=== PATIENT | male | born 1940 | race Caucasian/White ===

== ENCOUNTER 2017-05-11 04:02 | Outpatient (CLI) | payer MEDICARE, SELFPAY | END 2017-05-11 23:59 | disposition home or self-care (01) | LOC: DIABETIC 04:02 | PROVIDERS: ATTEND Internal Medicine | DX: E11.9 Type 2 diabetes mellitus without complications (principal) | CPT/HCPCS: G0108 ==

== ENCOUNTER 2019-03-21 02:29 | Outpatient (CLI) | payer MEDICARE | END 2019-03-21 23:59 | disposition home or self-care (01) | LOC: DIABETIC 02:29 | PROVIDERS: ATTEND Family Medicine | DX: E11.9 Type 2 diabetes mellitus without complications (principal); Z79.4 Long term (current) use of insulin | CPT/HCPCS: G0108 ==

== ENCOUNTER 2019-09-04 16:21 | Inpatient (IN) | payer MEDICARE ==
[~2019-09-04] VITALS: Ht 177.8 cm; Wt 96.0 kg
[2019-09-04] MEDS ORDERED: normal saline 1000ML IV soln IVB ONE (16:40)
[2019-09-04 17:29] LABS: BASOPHILS # (AUTO) 0.1 X10'3 (0-0.2); BASOPHILS % (AUTO) 0.9 % (0-1); EOSINOPHILS # (AUTO) 0.2 X10'3 (0-0.9); EOSINOPHILS % (AUTO) 3.1 % (0-6); HEMATOCRIT 39.9 % (42.0-52.0); HEMOGLOBIN 13.1 g/dl (14.0-17.9); LYMPHOCYTES # (AUTO) 1.3 X10'3 (1.1-4.8); MEAN CORPUSCULAR HEMOGLOBIN 30.6 PG (27.0-31.0); MEAN PLATELET VOLUME 7.1 FL (7.4-10.4); MONOCYTES # (AUTO) 0.7 X10'3 (0-0.9); MONOCYTES % (AUTO) 9.1 % (2-12); NEUTROPHILS # (AUTO) 5.1 X10'3 (1.8-7.7); NEUTROPHILS % (AUTO) 68.9 % (42-75); PLATELET COUNT 231 X10'3 (140-440); RED BLOOD COUNT 4.29 X10'6 (4.70-6.10); RED CELL DISTRIBUTION WIDTH 14.6 % (11.5-14.5); WHITE BLOOD COUNT 7.4 X10'3 (4.5-11.0)
[2019-09-04 17:55] LABS: ALANINE AMINOTRANSFERASE 35 U/L (12-78); ALBUMIN 3.6 G/DL (3.4-5.0); ALBUMIN/GLOBULIN RATIO 1.1 (1.1-1.5); ALKALINE PHOSPHATASE 103 IU/L (46-116); ANION GAP 10 (8-16); ASPARTATE AMINO TRANSFERASE 28 U/L (10-37); BILIRUBIN,TOTAL 0.4 MG/DL (0.1-1.0); BLOOD UREA NITROGEN 31 MG/DL (7-18); BUN/CREATININE RATIO 25.8 (5.4-32.0); CALCIUM 8.8 MG/DL (8.5-10.1); CHLORIDE 102 MMOL/L (99-107); GLUCOSE 95 MG/DL (70-104); POTASSIUM 4.7 MMOL/L (3.5-5.1); SODIUM 136 MMOL/L (135-145); TOTAL CARBON DIOXIDE 24.1 MMOL/L (24-32); TOTAL PROTEIN 6.9 G/DL (6.4-8.2); eGFR 59 ML/MIN
[2019-09-04 18:00] LABS: MAGNESIUM 1.6 MG/DL (1.5-2.4)
[2019-09-04 18:18] LABS: CLARITY,URINE CLEAR (Clear); COLOR,URINE YELLOW (Yellow); GLUCOSE, URINE NEGATIVE (Neg); KETONES,URINE NEGATIVE (Neg); LEUKOCYTE ESTERASE ,URINE TRACE (Neg); NITRITES, URINE NEGATIVE (Neg); OCCULT BLOOD,URINE NEGATIVE (Neg); PH,URINE 7.5 (4.8-8.0); PROTEIN,URINE NEGATIVE (Neg); UROBILINOGEN,URINE 0.2 E.U/dL (0.2-1.0)
[2019-09-04] MEDS ORDERED: CHOL10006 PO (18:31)
[2019-09-04] MEDS ORDERED: CETI-90 PO (18:31)
[2019-09-04] MEDS ORDERED: PANT-47 PO (18:31)
[2019-09-04] MEDS ORDERED: METF500T PO (18:31)
[2019-09-04] MEDS ORDERED: ATOR40TA72 PO (18:31)
[2019-09-04] MEDS ORDERED: NPH,100V2 SQ (18:31)
[2019-09-04] MEDS ORDERED: BENA20TA10 PO (18:31)
[2019-09-04 18:37] LABS: BACTERIA,URINE NONE SEEN /HPF (Neg); RBC,URINE NONE SEEN /HPF (0-2); SQUAMOUS EPITHELIAL CELL,UR NONE SEEN /LPF (FEW); UA COLLECTION TYPE CLN CATCH MIDSTREAM; WBC,URINE 0-4 /HPF (0-4)
[2019-09-04] MEDS ORDERED: magnesium 2GM in 50ml NS 50 ML IV PRN (19:45)
[2019-09-04] MEDS ORDERED: acetaminophen 325mg tablet PO PRN (19:45)
[2019-09-04] MEDS ORDERED: mag hydrox/Alum hydrox/simeth 30ml oral suspension PO PRN (19:45)
[2019-09-04] MEDS ORDERED: potassium Cl 20 mEq SR tablet PO PRN ×2 (19:45)
[2019-09-04] MEDS ORDERED: ondansetron/PF 4mg/2ml inj IV PRN (19:45)
[2019-09-04] MEDS ORDERED: potassium CL 10mEq/100ml bag 100 ML IV PRN ×2 (19:45)
[2019-09-04] MEDS ORDERED: magnesium 4gm in 100ml NS 100 ML IV PRN (19:45)
[2019-09-04] MEDS ORDERED: magnesium Cl slow-release 64mg tablet PO PRN (19:45)
[2019-09-04] MEDS ORDERED: magnesium hydroxide 30ml (MOM) UD suspension PO PRN (19:45)
[2019-09-04] MEDS: docusate sod 100mg capsule PO SCH (20:00)
[2019-09-04] MEDS: K and/or MAG REPLACEMENT MC SCH (20:00)
--- NOTE | 2019-09-04 20:28 | NUR ---
attempted to reach floor nurse. No one available at this time.
[2019-09-04] MEDS ORDERED: insulin Lispro (HumaLOG) vial - multi-dose SQ SCH (20:35)
[2019-09-04] MEDS ORDERED: MESSAGE TO PHARMACY PO ONE (20:35)
[2019-09-04] MEDS ORDERED: dextrose ORAL solution 15 GM/59 ML bottle PO PRN ×2 (20:35)
[2019-09-04] MEDS ORDERED: dextrose 50%-water 50ml dispensing syringe IV PRN ×2 (20:35)
[2019-09-04] MEDS ORDERED: glucagon, human recombinant 1mg kit SUBCUT PRN (20:35)
--- NOTE | 2019-09-04 20:35 | NUR ---
Attempted to reach PCU. No answer at this time.
[2019-09-04 20:57] LABS: HEMOGLOBIN A1C 8.2 % (4.5-6.2)
[2019-09-04] MEDS ORDERED: insulin glargine (Lantus) pen - multi-dose SQ SCH (21:00)
--- NOTE | 2019-09-04 21:05 | NUR ---
received report from [facility], had opportunity to ask questions. VS stable, pt on RA,pt has DM2, plan is- possible ppm tomorrow.
[2019-09-04 21:20] VITALS: BP 136/80
[2019-09-05 02:30] VITALS: BP 150/71
[2019-09-05 06:06] LABS: BASOPHILS # (AUTO) 0.1 X10'3 (0-0.2); BASOPHILS % (AUTO) 1.1 % (0-1); EOSINOPHILS # (AUTO) 0.3 X10'3 (0-0.9); EOSINOPHILS % (AUTO) 3.7 % (0-6); HEMATOCRIT 42.8 % (42.0-52.0); LYMPHOCYTES # (AUTO) 1.3 X10'3 (1.1-4.8); LYMPHOCYTES % (AUTO) 18.6 % (21-51); MEAN CORPUSCULAR HEMOGLOBIN 30.4 PG (27.0-31.0); MEAN CORPUSCULAR HGB CONC 32.7 g/dL (33.0-36.5); MEAN PLATELET VOLUME 7.3 FL (7.4-10.4); MONOCYTES # (AUTO) 0.7 X10'3 (0-0.9); MONOCYTES % (AUTO) 10.3 % (2-12); NEUTROPHILS # (AUTO) 4.5 X10'3 (1.8-7.7); NEUTROPHILS % (AUTO) 66.3 % (42-75); PLATELET COUNT 245 X10'3 (140-440); RED CELL DISTRIBUTION WIDTH 14.6 % (11.5-14.5); WHITE BLOOD COUNT 6.8 X10'3 (4.5-11.0)
[2019-09-05 06:15] LABS: ALANINE AMINOTRANSFERASE 36 U/L (12-78); ALBUMIN 3.7 G/DL (3.4-5.0); ALBUMIN/GLOBULIN RATIO 1.1 (1.1-1.5); ALKALINE PHOSPHATASE 100 IU/L (46-116); ANION GAP 4 (8-16); ASPARTATE AMINO TRANSFERASE 26 U/L (10-37); BILIRUBIN,TOTAL 0.6 MG/DL (0.1-1.0); BLOOD UREA NITROGEN 24 MG/DL (7-18); BUN/CREATININE RATIO 18.8 (5.4-32.0); CALCIUM 9.4 MG/DL (8.5-10.1); CHLORIDE 102 MMOL/L (99-107); CREATININE 1.28 MG/DL (0.60-1.10); GLUCOSE 199 MG/DL (70-104); POTASSIUM 4.8 MMOL/L (3.5-5.1); SODIUM 137 MMOL/L (135-145); TOTAL CARBON DIOXIDE 30.7 MMOL/L (24-32); TOTAL PROTEIN 7.2 G/DL (6.4-8.2); eGFR 55 ML/MIN
[2019-09-05 06:19] LABS: MAGNESIUM 1.7 MG/DL (1.5-2.4)
--- NOTE | 2019-09-05 06:19 | NUR ---
Problems reprioritized. Patient report given, questions answered & plan of care reviewed with [facility].
--- NOTE | 2019-09-05 06:30 | NUR ---
Patient in room PCU 3026. I have received report from MEGHAN Sultana and had the opportunity to ask questions and assume patient care.
[2019-09-05 07:00] VITALS: BP 139/70
[2019-09-05] MEDS: docusate sod 100mg capsule PO SCH (07:46)
[2019-09-05 07:47] VITALS: BP_SYST 139
[2019-09-05] MEDS ORDERED: lisinopril 20mg tablet PO SCH (08:00)
[2019-09-05] MEDS: K and/or MAG REPLACEMENT MC SCH (08:00)
[2019-09-05] MEDS ORDERED: atorvastatin 20mg tablet PO SCH (08:00)
[2019-09-05] MEDS ORDERED: pantoprazole 40mg Tablet.DR PO SCH (08:00)
--- NOTE | 2019-09-05 11:40 | NUR ---
PAGER ID: [phone] MESSAGE: [id number] Everette Betts EKG in chart. JORGE Marina RN [id number]
[2019-09-05] MEDS ORDERED: CETI-90 PO (11:53)
--- NOTE | 2019-09-05 13:04 | NUR ---
DM consult: Pt with A1c 8.2% seen at bedside denies questions about DM education or written DM education. Pt states he has had diabetes for over twenty years and already knows what he needs to do, just needs to implement it. Pt reports paperwork is in the process for outpatient dental resident scheduling and is wanting to further discuss this, VM left with CM. Pt provided with RD contact information. Will remain available. Addendum: 09/05/19 at [address] Amended: Links added.
--- NOTE | 2019-09-05 13:55 | NUR ---
Patient discharged home and will schedule an appointment with Dr. Chisholm when he gets home. Patient preferred to administer insulin himself when he arrives home. Tele, and PIV removed. Patient verbalized an understanding of his discharge instructions and patient education handouts. Patient's picked him up from [employer].
--- NOTE | 2019-09-11 14:25 | NUR ---
Case Management DC follow up: Status post: dizzy, weak, lightheaded/bradycardia, A1C 8.2. Spoke to pt & pt spouse, Livia via telephone, reports: pt is quick to tire, still gets dizzy, confusion per pt spouse who states she is worried. Pt downplays symptoms. Denies: acute/continuous cp, emergent SOB, acute general pain, resp distress, [place], N/V, sycope episodes, blurry vision, abd pain, distension, bladder pain, dysuria, frequency, urgency, hematuria, unexplained bleeding, bruising,fever. Verbalizes understanding of s/s that would warrant 11-15/ER visit for evaluation. Verbalizes understanding of Rx, why prescribed, resumes current Rx as ordered, denies ase r/t polypharmacy. Acknowledges need to schedule/keep follow up appts w/PCP/Benedicto, was seen by DRAPERY CUTTER MACHINE who recommended pt not to drive. pt feels is fine to drive. Reiterated unpredictable symptoms, driving not safe at this time, at least until [facility], Dr Chisholm has been able to do a thorough assessment. Dr Chisholm contacted on Tuesday09/07/19, awaiting records. Pt told records were sent today 09/11/19, and waiting for call to schedule. pt spouse states wants mold filler switched to Dr Haines for reasons r/t possible cardiac surgery, and Dr Chisholm is with [facility], pt & pt do not want any surgeries done at [facility]. this is the only reason for changing cardiologists. Pt agrees to discuss w/Dr Chisholm at appt. Needs met, questions answered at DC, no further questions r/t post status DC at this time.
== END 2019-09-05 13:41 | disposition home or self-care (01) | DRG 310 ==
LOC: ER 16:21 → ED HOLD 19:45 → PCU 3S 21:10
PROVIDERS: ADMIT Family Medicine; ATTEND Internal Medicine
DX: I44.1 Atrioventricular block, second degree (principal); R00.8 Other abnormalities of heart beat; E11.69 Type 2 diabetes mellitus with other specified complication; E78.5 Hyperlipidemia, unspecified; I45.4 Nonspecific intraventricular block; I10 Essential (primary) hypertension; K21.9 Gastro-esophageal reflux disease without esophagitis; Z79.899 Other long term (current) drug therapy; Z79.4 Long term (current) use of insulin
CPT/HCPCS: 36415; 71045; 80053; 81001; 82948; 83036; 83735; 83880; 84484; 85025; 87081; 87088; 93005; 93306; 96360; 96361; 99285; G0378; J1815; J7030

== ENCOUNTER 2019-09-27 14:14 | Emergency (ER) | payer MEDICARE ==
[~2019-09-27] VITALS: Ht 177.8 cm; Wt 90.9 kg
[~2019-09-27 14:14] MED LIST: ATOR40TA72 PO; BENA20TA10 PO; CETI-90 PO; CHOL10006 PO; METF500T PO; NPH,100V2 SQ; PANT-47 PO
[2019-09-27 15:03] LABS: BASOPHILS # (AUTO) 0.1 X10'3 (0-0.2); BASOPHILS % (AUTO) 0.9 % (0-1); EOSINOPHILS # (AUTO) 0.2 X10'3 (0-0.9); EOSINOPHILS % (AUTO) 2.8 % (0-6); HEMATOCRIT 39.6 % (42.0-52.0); LYMPHOCYTES # (AUTO) 1.2 X10'3 (1.1-4.8); LYMPHOCYTES % (AUTO) 19.8 % (21-51); MEAN CORPUSCULAR HGB CONC 32.9 g/dL (33.0-36.5); MEAN CORPUSCULAR VOLUME 91.1 FL (78-98); MONOCYTES # (AUTO) 0.6 X10'3 (0-0.9); MONOCYTES % (AUTO) 9.4 % (2-12); NEUTROPHILS # (AUTO) 4.1 X10'3 (1.8-7.7); NEUTROPHILS % (AUTO) 67.1 % (42-75); PLATELET COUNT 231 X10'3 (140-440); RED BLOOD COUNT 4.35 X10'6 (4.70-6.10); RED CELL DISTRIBUTION WIDTH 13.8 % (11.5-14.5); WHITE BLOOD COUNT 6.2 X10'3 (4.5-11.0)
[2019-09-27 15:11] LABS: ALANINE AMINOTRANSFERASE 32 U/L (12-78); ALBUMIN 3.3 G/DL (3.4-5.0); ALBUMIN/GLOBULIN RATIO 0.9 (1.1-1.5); ALKALINE PHOSPHATASE 82 IU/L (46-116); ANION GAP 10 (8-16); ASPARTATE AMINO TRANSFERASE 25 U/L (10-37); BILIRUBIN,TOTAL 0.4 MG/DL (0.1-1.0); BLOOD UREA NITROGEN 29 MG/DL (7-18); BUN/CREATININE RATIO 21.3 (5.4-32.0); CALCIUM 8.3 MG/DL (8.5-10.1); CHLORIDE 99 MMOL/L (99-107); CREATININE 1.36 MG/DL (0.60-1.10); GLUCOSE 167 MG/DL (70-104); POTASSIUM 4.7 MMOL/L (3.5-5.1); SODIUM 134 MMOL/L (135-145); TOTAL CARBON DIOXIDE 25.2 MMOL/L (24-32); TOTAL PROTEIN 7.1 G/DL (6.4-8.2); eGFR 51 ML/MIN
[2019-09-27 15:20] LABS: MAGNESIUM 1.7 MG/DL (1.5-2.4)
[2019-09-27] MEDS ORDERED: normal saline 1000ML IV soln IVB ONE (15:30)
[2019-09-27 16:11] VITALS: BP 138/69
== END 2019-09-27 16:14 | disposition home or self-care (01) ==
LOC: ER 14:15
DX: D64.9 Anemia, unspecified (principal); R00.1 Bradycardia, unspecified; R42 Dizziness and giddiness; N18.9 Chronic kidney disease, unspecified; Z98.890 Other specified postprocedural states
CPT/HCPCS: 36415; 71045; 80053; 83735; 83880; 84484; 85025; 93005; 99285; J7030

== ENCOUNTER 2020-01-11 06:45 | Day surgery (SDC) | payer MEDICARE ==
[2020-01-07 12:36] LABS: BASOPHILS # (AUTO) 0.1 X10'3 (0-0.2); BASOPHILS % (AUTO) 1.5 % (0-1); EOSINOPHILS # (AUTO) 0.2 X10'3 (0-0.9); EOSINOPHILS % (AUTO) 4.8 % (0-6); LYMPHOCYTES # (AUTO) 0.8 X10'3 (1.1-4.8); LYMPHOCYTES % (AUTO) 20.9 % (21-51); MEAN CORPUSCULAR HEMOGLOBIN 29.6 PG (27.0-31.0); MEAN CORPUSCULAR HGB CONC 33.1 g/dL (33.0-36.5); MEAN CORPUSCULAR VOLUME 89.4 FL (78-98); MEAN PLATELET VOLUME 6.4 FL (7.4-10.4); MONOCYTES # (AUTO) 0.6 X10'3 (0-0.9); MONOCYTES % (AUTO) 14.5 % (2-12); NEUTROPHILS # (AUTO) 2.3 X10'3 (1.8-7.7); NEUTROPHILS % (AUTO) 58.3 % (42-75); PRE OP HEMATOCRIT 39.4 % (42.0-52.0); PRE OP PLATELET COUNT 201 X10'3 (140-440); RED BLOOD COUNT 4.41 X10'6 (4.70-6.10); RED CELL DISTRIBUTION WIDTH 15.1 % (11.5-14.5)
[2020-01-07 12:42] LABS: ALBUMIN 3.7 G/DL (3.4-5.0); ALBUMIN/GLOBULIN RATIO 1.1 (1.1-1.5); ALKALINE PHOSPHATASE 161 IU/L (46-116); BLOOD UREA NITROGEN 23 MG/DL (7-18); CALCIUM 8.8 MG/DL (8.5-10.1); CHLORIDE 94 MMOL/L (99-107); CREATININE 1.21 MG/DL (0.60-1.10); PRE OP ANION GAP 8 (8-16); PRE OP AST 71 U/L (10-37); PRE OP BILIRUB, TOTAL 0.7 MG/DL (0.0-1.0); PRE OP GLUCOSE 83 MG/DL (70-104); PRE OP POTASSIUM 4.4 MMOL/L (3.4-5.1); TOTAL CARBON DIOXIDE 28.3 MMOL/L (24-32); TOTAL PROTEIN 7.2 G/DL (6.4-8.2); eGFR 58 ML/MIN
[2020-01-07 12:44] LABS: PRE OP SODIUM 130 MMOL/L (135-145)
[2020-01-07 12:45] LABS: PRE OP ALT 85 U/L (30-65)
[2020-01-11] VITALS (9 sets, daily range): BP systolic 128–154; BP diastolic 60–85
[~2020-01-11] VITALS: Ht 177.8 cm; Wt 88.5 kg
[~2020-01-11 06:45] MED LIST changes: +AMIO200T61 PO; +ASPI-1265 PO; +ATOR-2 PO; -ATOR40TA72 PO; +BUPIVAcaine/PF 2.5mg/ml (0.25%) 10ml vial ONE; +CALC-336 PO; -CETI-90 PO; +DOCUMENT DATE & TIME OF BETA-BLOCKER PO ONE; +INSU100V12 SQ; +METO25TA6 PO; +NITR0.4T51 SL; -PANT-47 PO; +VIT1CAPS46 PO; +ceFAZolin 2gm in dextrose, iso 50 ML IV ONE; +famotidine 20mg tablet PO ONE; +ringers solution, lacted 1,000 ML IV SCH
[2020-01-11] MEDS ORDERED: proCHLORperazine 10 MG/2 ml inj IV PRN (07:40)
[2020-01-11] MEDS ORDERED: ondansetron/PF 4mg/2ml inj IV PRN (07:40)
[2020-01-11] MEDS ORDERED: morphine 2 MG/ML inj. syringe IV PRN (07:40)
[2020-01-11] MEDS ORDERED: ringers solution, lacted 1,000 ML IV SCH (07:40)
[2020-01-11] MEDS ORDERED: morphine 4 MG/ML inj SYRINge IV PRN (07:40)
[2020-01-11] MEDS ORDERED: meperidine/PF 25mg/ml syringe IV PRN ×3 (07:40)
[2020-01-11] MEDS ORDERED: LIDOcaine 0.5% (5mg/ml) 50ml vial ONE (08:02)
[2020-01-11] MEDS ORDERED: fentaNYL/PF 50MCG/1 ML 2ML syringe ONE (10:22)
[2020-01-11] MEDS ORDERED: midazolam 2 mg/2 ml injection ONE (10:25)
--- NOTE | 2020-01-11 11:05 | NUR ---
Received from OR via [facility], accompanied by Anesthesiologist DR HOLLY and report given by Anesthesiolgist. PATIENT A&OX4, DENIES PAIN, V/S WNL, NEUROVASCULAR CHECKS INTACT, 20G PIV right forearm, SCD ON, DRESSING TO left middle finger with metal brace. CDI ELEVATED WITH ICEBAG APPLIED.
--- NOTE | 2020-01-11 12:00 | NUR ---
dc to home. has all belongings. no pain, vss, iv out with cath intact. given dc instructions. states understands. wheeled to car. driving home. instructions gone over with as well.
== END 2020-01-11 12:00 | disposition home or self-care (01) ==
LOC: PAS 06:45
PROVIDERS: ATTEND Orthopaedic Surgery Hand Surgery
DX: M19.042 Primary osteoarthritis, left hand (principal); M20.012 Mallet finger of left finger(s); E11.40 Type 2 diabetes mellitus with diabetic neuropathy, unspecified; I48.91 Unspecified atrial fibrillation; I11.0 Hypertensive heart disease with heart failure; I50.9 Heart failure, unspecified; I25.10 Atherosclerotic heart disease of native coronary artery without angina pectoris; G47.30 Sleep apnea, unspecified; M19.071 Primary osteoarthritis, right ankle and foot; M19.072 Primary osteoarthritis, left ankle and foot; E78.5 Hyperlipidemia, unspecified; Z95.1 Presence of aortocoronary bypass graft; Z20.828 Contact with and (suspected) exposure to other viral communicable diseases; Z79.899 Other long term (current) drug therapy; Z79.4 Long term (current) use of insulin; Z79.82 Long term (current) use of aspirin; Z98.890 Other specified postprocedural states
CPT/HCPCS: 26860; 36415; 80053; 82948; 85025; 87635; C1713; J2001; J2250; J3010; J3490; J7120; A4215; A4618; A7000

== ENCOUNTER 2021-07-06 16:00 | Outpatient (CLI) | payer MEDICARE ==
[~2021-07-06 16:00] MED LIST changes: +APIX2.5T PO; -ATOR-2 PO; -BENA20TA10 PO; -BUPIVAcaine/PF 2.5mg/ml (0.25%) 10ml vial ONE; -CALC-336 PO; -DOCUMENT DATE & TIME OF BETA-BLOCKER PO ONE; +INSU100I31 SQ; -INSU100V12 SQ; +METO-539 PO; -METO25TA6 PO; -NPH,100V2 SQ; +ROSU40TA PO; +SPIR25TA PO; +UBID200C18 PO; +VALS40TA2 PO; -ceFAZolin 2gm in dextrose, iso 50 ML IV ONE; -famotidine 20mg tablet PO ONE; -ringers solution, lacted 1,000 ML IV SCH
== END 2021-07-06 23:59 | disposition home or self-care (01) ==
LOC: VAS 16:00
PROVIDERS: ATTEND Family Medicine
DX: M79.89 Other specified soft tissue disorders (principal)
CPT/HCPCS: 93971

== ENCOUNTER 2021-09-26 19:51 | Emergency (ER) | payer MEDICARE ==
[~2021-09-26] VITALS: Ht 177.8 cm; Wt 90.9 kg
[2021-09-26] MEDS: aspirin 81mg tab.chew PO ONE ×2 (20:40→21:23)
[2021-09-26] MEDS ORDERED: nitroGLYCERIN 1gm ointment UD TP ONE (20:45)
[2021-09-26 20:54] LABS: CLARITY,URINE CLEAR (Clear); GLUCOSE, URINE NEGATIVE (Neg); KETONES,URINE NEGATIVE (Neg); LEUKOCYTE ESTERASE ,URINE NEGATIVE (Neg); NITRITES, URINE NEGATIVE (Neg); OCCULT BLOOD,URINE NEGATIVE (Neg); PH,URINE 5.5 (4.8-8.0); PROTEIN,URINE NEGATIVE (Neg); UROBILINOGEN,URINE 0.2 E.U/dL (0.2-1.0)
[2021-09-26 20:58] LABS: COLOR,URINE STRAW (Yellow); UA COLLECTION TYPE URINAL
[2021-09-26 21:12] LABS: BASOPHILS % (AUTO) 0.6 % (0-1); EOSINOPHILS # (AUTO) 0.1 X10'3 (0-0.9); EOSINOPHILS % (AUTO) 2.1 % (0-6); HEMATOCRIT 38.2 % (42.0-52.0); HEMOGLOBIN 12.8 g/dl (14.0-17.9); LYMPHOCYTES # (AUTO) 1.3 X10'3 (1.1-4.8); MEAN CORPUSCULAR HEMOGLOBIN 29.4 PG (27.0-31.0); MEAN CORPUSCULAR HGB CONC 33.5 g/dL (33.0-36.5); MEAN CORPUSCULAR VOLUME 87.6 FL (78-98); MEAN PLATELET VOLUME 6.5 FL (7.4-10.4); MONOCYTES # (AUTO) 0.9 X10'3 (0-0.9); MONOCYTES % (AUTO) 15.1 % (2-12); NEUTROPHILS # (AUTO) 3.4 X10'3 (1.8-7.7); NEUTROPHILS % (AUTO) 59.2 % (42-75); PLATELET COUNT 172 X10'3 (140-440); RED BLOOD COUNT 4.36 X10'6 (4.70-6.10); WHITE BLOOD COUNT 5.8 X10'3 (4.5-11.0)
[2021-09-26 21:22] LABS: ALANINE AMINOTRANSFERASE 46 U/L (12-78); ALBUMIN 3.4 G/DL (3.4-5.0); ALBUMIN/GLOBULIN RATIO 0.9 (1.1-1.5); ALKALINE PHOSPHATASE 115 IU/L (46-116); ANION GAP 9 (8-16); ASPARTATE AMINO TRANSFERASE 48 U/L (10-37); BILIRUBIN,TOTAL 0.3 MG/DL (0.1-1.0); BLOOD UREA NITROGEN 32 MG/DL (7-18); BUN/CREATININE RATIO 24.1 (5.4-32.0); CALCIUM 8.5 MG/DL (8.5-10.1); CHLORIDE 102 MMOL/L (99-107); CREATININE 1.33 MG/DL (0.60-1.10); GLUCOSE 66 MG/DL (70-104); SODIUM 136 MMOL/L (135-145); TOTAL CARBON DIOXIDE 25.2 MMOL/L (24-32); TOTAL PROTEIN 7.1 G/DL (6.4-8.2); eGFR 52 ML/MIN
[2021-09-26 21:28] LABS: MAGNESIUM 1.6 MG/DL (1.5-2.4)
[2021-09-26] MEDS ORDERED: metoprolol succinate 25mg (24-HOUR) SR. Tablet PO STA (22:08)
[2021-09-26 22:28] VITALS: BP 113/95
--- NOTE | 2021-09-26 23:01 | NUR ---
Patient is awake, alert and oriented x4. On room air, no form of distress noted. All txs provided.
== END 2021-09-26 23:25 | disposition home or self-care (01) ==
LOC: ER 19:52
DX: R53.1 Weakness (principal); N18.9 Chronic kidney disease, unspecified; I50.9 Heart failure, unspecified
CPT/HCPCS: 36415; 71045; 80053; 81003; 82948; 83735; 83880; 84484; 85025; 93005; 99285

== ENCOUNTER 2024-01-16 09:45 | Outpatient (CLI) | payer MEDICARE ==
[~2024-01-16 09:45] MED LIST changes: +AMI200T PO; -AMIO200T61 PO; -ASPI-1265 PO; -INSU100I31 SQ; +LANTUS SQ; -ROSU40TA PO; +ROSU40TA89 PO; +SACU1TAB PO; -VALS40TA2 PO; -VIT1CAPS46 PO
[2024-01-16 11:05] LABS: BASOPHILS # (AUTO) 0.1 X10'3 (0-0.2); BASOPHILS % (AUTO) 1.5 % (0-1); EOSINOPHILS # (AUTO) 0.2 X10'3 (0-0.9); EOSINOPHILS % (AUTO) 4.1 % (0-6); LYMPHOCYTES # (AUTO) 0.7 X10'3 (1.1-4.8); LYMPHOCYTES % (AUTO) 16.1 % (21-51); MEAN CORPUSCULAR HEMOGLOBIN 30.9 PG (27.0-31.0); MEAN CORPUSCULAR HGB CONC 33.2 g/dL (33.0-36.5); MEAN CORPUSCULAR VOLUME 93.3 FL (78-98); MEAN PLATELET VOLUME 6.2 FL (7.4-10.4); MONOCYTES # (AUTO) 0.4 X10'3 (0-0.9); MONOCYTES % (AUTO) 10.7 % (2-12); NEUTROPHILS # (AUTO) 2.8 X10'3 (1.8-7.7); NEUTROPHILS % (AUTO) 67.6 % (42-75); PRE OP HEMATOCRIT 36.9 % (42.0-52.0); PRE OP HEMOGLOBIN 12.2 g/dL (14.0-17.9); PRE OP PLATELET COUNT 162 X10'3 (140-440); PRE OP WHITE BLOOD COUNT 4.1 10'3 (4.8-10.8); RED BLOOD COUNT 3.96 X10'6 (4.70-6.10); RED CELL DISTRIBUTION WIDTH 15.3 % (11.5-14.5)
[2024-01-16 11:21] LABS: ALBUMIN 3.6 G/DL (3.4-5.0); ALKALINE PHOSPHATASE 107 IU/L (46-116); BLOOD UREA NITROGEN 27 MG/DL (7-18); BUN/CREATININE RATIO 16.6 (10.0-20.0); CALCIUM 8.4 MG/DL (8.5-10.1); CHLORIDE 102 MMOL/L (99-107); CREATININE 1.63 MG/DL (0.60-1.10); PRE OP ALT 50 U/L (30-65); PRE OP ANION GAP 10 (8-16); PRE OP AST 43 U/L (10-37); PRE OP BILIRUB, TOTAL 0.4 MG/DL (0.0-1.0); PRE OP GLUCOSE 151 MG/DL (70-104); PRE OP POTASSIUM 5.1 MMOL/L (3.4-5.1); PRE OP SODIUM 135 MMOL/L (135-145); TOTAL CARBON DIOXIDE 23.2 MMOL/L (24-32); TOTAL PROTEIN 7.1 G/DL (6.4-8.2); eGFR 41 ML/MIN
[2024-01-16] MEDS ORDERED: LOSA50TA64 PO (11:25)
[2024-01-16] MEDS ORDERED: INSU100C4 SQ (11:25)
[2024-01-16] MEDS ORDERED: [UNRECOGNIZED DRUG - REMARK] (11:25)
[2024-01-16] MEDS ORDERED: WARF2.5T82 PO (11:25)
[2024-01-16] MEDS ORDERED: METO-384 PO (11:25)
[2024-01-16] MEDS ORDERED: CHOL500044 PO (11:25)
[2024-01-16] MEDS ORDERED: BETA1TAB20 PO (11:25)
[2024-01-16 11:26] LABS: HEMOGLOBIN A1C 8.2 % (4.5-6.2)
== END 2024-01-16 23:59 | disposition home or self-care (01) ==
LOC: LAB 09:45 → EDSTATUS 01-23 12:15
PROVIDERS: ATTEND Orthopaedic Surgery
DX: Z01.818 Encounter for other preprocedural examination (principal); T84.028A Dislocation of other internal joint prosthesis, initial encounter; M25.511 Pain in right shoulder; Z79.899 Other long term (current) drug therapy; Z96.611 Presence of right artificial shoulder joint; X58.XXXA Exposure to other specified factors, initial encounter; Y84.8 Other medical procedures as the cause of abnormal reaction of the patient, or of later complication, without mention of misadventure at the time of the procedure; Y92.89 Other specified places as the place of occurrence of the external cause
CPT/HCPCS: 36415; 80053; 83036; 85025; 87081

== ENCOUNTER 2024-08-02 08:37 | Inpatient (IN) | payer MEDICARE ==
--- NOTE | 2024-07-27 15:15 | ELECTROCARDIOGRAPH REPORT ---
[facility] Test Date: 2024-07-27 Test Time: 15:11:21 Pat Name: DUSTY MONDRAGON Department: PRE/OP CARDIOLOGY Room: Gender: M Shoe Lay Out Planner: RAÚL : 1940 Requested By: AB CLINE Order Number: [id number] Reading MD: Dr. YESSENIA Jesus Measurements Intervals [place] Rate: 61 P: 35 ND: 225 QRS: -63 QRSD: 133 T: 124 QT: 429 QTc: 432 Interpretive Statements Atrial-sensed ventricular-paced rhythm No further analysis attempted due to paced rhythm Electronically Signed On 07-27-2024 19:06:[address] YESSENIA Jesus Please click the below link to view image of tracing.
[2024-07-27 15:49] LABS: BASOPHILS # (AUTO) 0.1 X10'3 (0-0.2); BASOPHILS % (AUTO) 1.2 % (0-1); EOSINOPHILS # (AUTO) 0.1 X10'3 (0-0.9); EOSINOPHILS % (AUTO) 2.4 % (0-6); LYMPHOCYTES # (AUTO) 0.8 X10'3 (1.1-4.8); LYMPHOCYTES % (AUTO) 16.6 % (21-51); MEAN CORPUSCULAR HEMOGLOBIN 30.5 PG (27.0-31.0); MEAN CORPUSCULAR HGB CONC 33.9 g/dL (33.0-36.5); MEAN CORPUSCULAR VOLUME 89.9 FL (78-98); MEAN PLATELET VOLUME 6.4 FL (7.4-10.4); MONOCYTES # (AUTO) 0.4 X10'3 (0-0.9); MONOCYTES % (AUTO) 8.8 % (2-12); NEUTROPHILS # (AUTO) 3.3 X10'3 (1.8-7.7); PRE OP HEMATOCRIT 35.3 % (42.0-52.0); PRE OP PLATELET COUNT 188 X10'3 (140-440); PRE OP WHITE BLOOD COUNT 4.7 10'3 (4.8-10.8); RED BLOOD COUNT 3.93 X10'6 (4.70-6.10); RED CELL DISTRIBUTION WIDTH 15.8 % (11.5-14.5)
[2024-07-27 15:53] LABS: BILIRUBIN,URINE NEGATIVE (Neg); CLARITY,URINE CLEAR (Clear); COLOR,URINE YELLOW (Yellow); GLUCOSE, URINE NEGATIVE (Neg); KETONES,URINE NEGATIVE (Neg); LEUKOCYTE ESTERASE ,URINE NEGATIVE (Neg); NITRITES, URINE NEGATIVE (Neg); OCCULT BLOOD,URINE NEGATIVE (Neg); PROTEIN,URINE NEGATIVE (Neg)
[2024-07-27 15:58] LABS: HEMOGLOBIN A1C 7.3 % (4.5-6.2)
[2024-07-27 15:59] LABS: ALBUMIN 3.6 G/DL (3.4-5.0); ALKALINE PHOSPHATASE 123 IU/L (46-116); BLOOD UREA NITROGEN 31 MG/DL (7-18); CALCIUM 8.5 MG/DL (8.5-10.1); CHLORIDE 99 MMOL/L (99-107); CREATININE 1.55 MG/DL (0.60-1.10); PRE OP ALT 59 U/L (30-65); PRE OP ANION GAP 6 (8-16); PRE OP AST 60 U/L (10-37); PRE OP BILIRUB, TOTAL 0.5 MG/DL (0.0-1.0); PRE OP GLUCOSE 122 MG/DL (70-104); PRE OP POTASSIUM 4.4 MMOL/L (3.4-5.1); PRE OP SODIUM 132 MMOL/L (135-145); TOTAL CARBON DIOXIDE 26.6 MMOL/L (24-32); TOTAL PROTEIN 7.1 G/DL (6.4-8.2); eGFR 43 ML/MIN
[2024-07-27 16:05] LABS: UA COLLECTION TYPE NON-SPECIFIED
--- NOTE | 2024-07-27 16:45 | RADIOLOGY REPORT ---
EXAM: DI CHEST,TWO VIEWS CLINICAL HISTORY: Pain COMPARISON: None TECHNIQUE: Frontal and lateral view of the chest was obtained FINDINGS: Lines and Tubes: Cardiac pacemaker projects over left chest wall. Lungs: No focal consolidation. Pleura: No effusion. No pneumothorax. Cardiomediastinal contours: Unremarkable Bones: No acute osseous abnormality. IMPRESSION: No acute cardiopulmonary disease.
[~2024-08-02] VITALS: Ht 177.8 cm; Wt 86.8 kg
[2024-08-02] VITALS (17 sets, daily range): BP systolic 126–149; BP diastolic 61–79; PULSE 60–70; RESP 9–21; TEMP 96.7–97.9; O2SAT 95–100
[2024-08-02] MEDS: ceFAZolin 2gm/dext,iso 50mL 50 ML IV ONE (05:30)
[2024-08-02] MEDS: DOCUMENT DATE & TIME OF BETA-BLOCKER PO ONE (05:30)
[~2024-08-02 08:37] MED LIST changes: -AMI200T PO; -APIX2.5T PO; +BETA1TAB20 PO; -CHOL10006 PO; +CHOL500044 PO; +INSU100C4 SQ; +LOSA50TA64 PO; +MECO10005 PO; -METF500T PO; +METO-384 PO; -METO-539 PO; -SACU1TAB PO; +WARF2.5T82 PO; +[UNRECOGNIZED DRUG - REMARK]; +ondansetron 4mg rapidly disintigrating tab PO PRN
[2024-08-02] MEDS ORDERED: labetalol 20mg/4ml (5mg/ml) syringe IV PRN ×2 (09:35→11:45)
[2024-08-02] MEDS ORDERED: morphine 4 MG/ML inj SYRINge IV PRN (09:35)
[2024-08-02] MEDS ORDERED: HYDROmorphone/PF 0.2 MG/ML SYRINGE IV PRN ×2 (09:35)
[2024-08-02] MEDS ORDERED: ondansetron/PF 4mg/2ml inj IV PRN ×2 (09:35→11:45)
[2024-08-02] MEDS ORDERED: morphine 2 MG/ML inj. syringe IV PRN (09:35)
[2024-08-02] MEDS ORDERED: hydrALAZINE 20mg/ml inj. IV PRN ×2 (09:35→11:45)
[2024-08-02] MEDS: famotidine 20mg tablet PO ONE (10:09)
[2024-08-02] MEDS: ringers solution, lacted 1,000 ML IV SCH ×2 (10:09→13:06)
[2024-08-02] MEDS: VANCOMYCIN/H2O 1.5g/300mL PB 300 ML IV ONE (10:10)
[2024-08-02] MEDS ORDERED: LIDOcaine 1% 30ml preserv. free vial ONE (10:53)
[2024-08-02] MEDS ORDERED: iohexol 350MG/ML 100ml bottle IV ONE (10:54)
[2024-08-02] MEDS ORDERED: fentaNYL/PF 50MCG/1 ML 2ML syringe ONE (11:05)
[2024-08-02 11:11] LABS: PRE OP PROTIME 16.1 SECONDS (9.0-12.0)
[2024-08-02] MEDS ORDERED: sevoflurane 250ml liquid IH ONE (11:16)
[2024-08-02 11:21] LABS: PRE OP INR 1.6 INR
[2024-08-02] MEDS ORDERED: heparin 1,000unit/ml 10ml vial 10 ML ONE (11:26)
[2024-08-02] MEDS ORDERED: propofol inj 20 ML IV ONE (11:26)
[2024-08-02] MEDS ORDERED: rocuronium 10mg/ml inj IV ONE (11:26)
[2024-08-02] MEDS ORDERED: dexamethasone sod phosphate 4mg/ml inj. ONE (11:30)
[2024-08-02] MEDS ORDERED: sugammadex 200mg/2ml injection IV ONE (11:40)
[2024-08-02] MEDS ORDERED: ondansetron/PF 4mg/2ml inj ONE (11:40)
[2024-08-02] MEDS ORDERED: HYDROcodone/acetaminophen 5mg/325mg tablet PO PRN (11:45)
[2024-08-02] MEDS ORDERED: potassium CL 10mEq/100ml bag 100 ML IV PRN (11:45)
[2024-08-02] MEDS ORDERED: diphenhydrAMINE 25mg capsule PO PRN (11:45)
[2024-08-02] MEDS ORDERED: dextrose 50%-water 50ml dispensing syringe IV PRN ×2 (11:45)
[2024-08-02] MEDS ORDERED: potassium Cl 20mEq/100mL bag 100 ML IV PRN (11:45)
[2024-08-02] MEDS ORDERED: DEXTROSE 15 GM of carb/4 tabs (each vial/BOTTLE has 4 tablets) PO PRN ×2 (11:45)
[2024-08-02] MEDS ORDERED: proCHLORperazine 10 MG/2 ml inj IV PRN (11:45)
[2024-08-02] MEDS ORDERED: magnesium sulf-water 2g/50mL 50 ML IV PRN (11:45)
[2024-08-02] MEDS ORDERED: pantoprazole 40mg Tablet.DR PO PRN (11:45)
[2024-08-02] MEDS ORDERED: potassium Cl 40MEQ/270ML bag 250 ML IV PRN (11:45)
[2024-08-02] MEDS ORDERED: magnesium sulf-water 4G/100mL 100 ML IV PRN (11:45)
[2024-08-02] MEDS ORDERED: glucagon, human recombinant 1mg kit SUBCUT PRN (11:45)
[2024-08-02] MEDS ORDERED: docusate sod 100mg capsule PO PRN (11:45)
[2024-08-02] MEDS ORDERED: potassium Cl 40MEQ/1/2NS 520ml 520 ML IV PRN (11:45)
[2024-08-02] MEDS ORDERED: acetaminophen 325mg tablet PO PRN (11:45)
[2024-08-02] MEDS ORDERED: potassium Cl 20 mEq SR tablet PO PRN (11:45)
--- NOTE | 2024-08-02 11:48 | OPERATIVE REPORT ---
Operative Report Providers to CC CC: NATALIE HAINES MD ~ Date of Procedure: August 02, 2024 Pre-Operative Diagnosis: Atrial Fibrillation with high bleeding risk Post-Operative Diagnosis SAME as PRE-Op Procedure Performed 1. Transseptal Puncture via DEO guidance 2. Left Atrial Appendogram 3. Left Atrial Appendage closure with 27mm Watchman FLX Pro Pro Device 4. Ultrasound guided access, right Femoral Vein Surgeon: Ab Haines MD Loop Puller n/a Anesthesiologist: Khang Tomas Type of Anesthesia: General Findings: Left Atrial appendage amenable to percutaneous closure. Complications None Prosthetics\\Implants used: 27mm Watchman Flx Pro Estimated Blood Loss: Minimal Specimen Removed: None Description of Procedure: The patient was brought to the wheelabrator operator in a fasting state. They underwent General anesthesia. Ultrasound was used to guide access to the right femoral vein where two alfonzo-cross Perclose devices were placed and upsized to an 8Fr sheath. Heparin was given to maintain an ACT over 250 seconds. An 0.035" wire was advanced into the SVC. The 8Fr sheath was then removed and the 8.5Fr VersaCross Transseptal sheath was advanced into the SVC. The RF wire was then advanced to the tip of the sheath/dilator. Using DEO guidance, appropriate position of the tip of the sheath was determined and using an energized wire tip, advanced into the left atrium. The sheath and dilator were then advanced over the wire into the left atrium. Over the wire, the Versacross sheath was removed and exchanged for the Watchman Sheath. The wire and dilator were then removed and exchanged for a 5Fr pigtail catheter which was placed into the left atrial appendage and an appendogram performed in the TEIXEIRA-Caudal position. There, ACT was confirmed to be therapeutic. The Watchman sheath was then advanced into the left atrial appendage over the pigtail catheter. Once appropriate position was determined, the pigtail was removed, the 27mm Watchman FLX device and delivery system were advanced into the tip of the sheath. The delivery system was advanced until an appropriate FLX ball was formed. The guide was then retracted and the Watchman device was unsheathed will full deployment in the appendage. Next, PASS criteria was performed confirming adequate positioning and anchoring(using a tug-test), sizing showing adequate compression, and no significant leak around the device. Another Appendogram was performed confirming placement. The device was then released from the delivery system. The guide and delivery system were removed and the perclose tied as well as the [id number] suture, ensuring adequate hemostasis. Mean LA Presssure: 12mmHg Contrast: 10cc ACT: 320s Device Compression: 18-26% RESULTS: 1. Successful Left-Atrial Appendage closure with a 27mm Watchman FLX Pro device 2. Right Femoral Vein access, closed with Perclose x 2 and [id number]-dz-[id number] suture 3. Resume Warfarin x 45days with repeat imaging at that time. If sealed without evidence of device related thrombosis, can stop OAC and start ASA 81mg QD indefinitely, plavix 75mg QD x 6 months. They will be watched in the recovery area until stable, then transferred to the telemetry at that time. AB HAINES MD August 02, 2024 11:48
[2024-08-02] MEDS: INSULIN LISPRO 100 UNIT/ML INSULN.PEN MULTI-DOSE SQ SCH ×2 (12:00)
--- NOTE | 2024-08-02 12:20 | ELECTROCARDIOGRAPH REPORT ---
[facility] Test Date: 2024-08-02 Test Time: 12:03:18 Pat Name: DUSTY MONDRAGON Department: [facility] IN Room: [place] [address] Gender: M Clinical Faculty: RAÚL : 1940 Requested By: AB CLINE Order Number: [id number] Reading MD: Dr. YESSENIA Jesus Measurements Intervals [place] Rate: 67 P: 1 [place]: 205 QRS: -73 QRSD: 161 T: 111 QT: 484 QTc: 511 Interpretive Statements Sinus rhythm Multiple premature complexes, vent & supraven Nonspecific IVCD with LAD LVH with secondary repolarization abnormality Inferior infarct, old Anterior Q waves, possibly due to LVH Electronically Signed On 08-02-2024 18:23:[address] YESSENIA Jesus Please click the below link to view image of tracing.
[2024-08-02] MEDS: normal saline 1000ml 1,000 ML IV SCH (13:55)
[2024-08-02] MEDS: ceFAZolin 1GM/D5W- ADD-VANTAGE 50 ML IV SCH (16:39)
[2024-08-02] MEDS: sod chloride 0.9% 10ml flush syringe IV SCH (16:39)
[2024-08-02] MEDS: spironolactone 25 MG tablet PO SCH (21:00)
[2024-08-02] MEDS ORDERED: warfarin 2.5mg tablet PO SCH (21:00)
[2024-08-02] MEDS: vancomycin/NS 1 GM ADD-VANTAGE 250 ML IV SCH (21:14)
[2024-08-02] MEDS: atorvastatin 20mg tablet PO SCH (21:14)
[2024-08-02] MEDS: metoprolol succinate 25mg (24-HOUR) SR. Tablet PO SCH (21:15)
[2024-08-02] MEDS: losartan 50mg tablet PO SCH (21:15)
[2024-08-02] MEDS: warfarin 3mg tablet PO ONE (21:15)
[2024-08-02] MEDS: cholecalciferol (vitamin D3) 1,000 unit (25mcg) tablet PO SCH (21:15)
--- NOTE | 2024-08-03 00:14 | CARDIOLOGY REPORT ---
APPROVED REPORT EXAM: Focused, limited intraprocedural transesophageal 2D, spectral and color flow Doppler echocardio gram during WATCHMAN deployment. Patient Location: [facility] Blood Pressure: 117/72 mmHg Heart Rate: 60 bpm Rhythm: Pacemaker Indications PRE IMAGING AND WATCHMAN FLX ALPHONSO CLOSURE DEVICE IMPLANTATION CHRONIC ATRIAL FIBRILLATION 27 mm WATCHMAN FLX ALPHONSO CLOSURE DEVICE Silviculture Professor: Wendi Haines MD / Interventionalist: Wendi Haines MD / Device rep[place] [facility] [place] echo: NA LEFT VENTRICLE Normal LV size and wall thickness. Overall systolic function appears low normal. LVEF is 50%. RIGHT VENTRICLE RV is normal size and function. ATRIA LA appears moderately dilated. Windsock shaped appendage without thrombus detected. Left upper pulmon dolly vein identified. Intact interatrial septum. Width / length averages are: 0degr - 17 x 18 mm; 45de gr - 15 x 18 mm; 90degr - 17 x 23 mm; 135degr 18 x 20 mm. Loop 15: Septal tenting visualized with RF atrial septal puncture performed. Loop 16: Wire in LA. Pigtail advanced to tip of appendage. LA press ure is measured at: 12 mmHG. Loop 17: Appendagram performed. Loop 19: Flex ball deployed. 27 mm Watc hman FLX device, PASS criteria attempted successfully. Loop 20 : Successful "TUG" test performed. PAS S reassessed. Optimal compression obtained - shoulder to shoulder measurement is: 20.75 mm. Loop 34: Device released. Patent interatrial septum with small residual left to right shunt (s/p transseptal p uncture). Successfully occluded left atrial appendage with Watchman device well positioned without th rombus. No residual flow around device detected. No pericardial effusion post-implant. GREAT VESSELS The aortic root is normal in size. PERICARDIUM Normal pericardium. No effusion. CONCLUSION Normal LV size and wall thickness. Overall systolic function appears low normal. LVEF is 50%. RV is n ormal size and function. LA appears moderately dilated. Windsock shaped appendage without thrombus de tected. Left upper pulmonary vein identified. Intact interatrial septum. Width / length averages are: 0degr - 17 x 18 mm; 45degr - 15 x 18 mm; 90degr - 17 x 23 mm; 135degr 18 x 20 mm. Loop 15: Septal te nting visualized with RF atrial septal puncture performed. Loop 16: Wire in LA. Pigtail advanced to t ip of appendage. LA pressure is measured at: 12 mmHG. Loop 17: Appendagram performed. Loop 19: Flex ball deployed. 27 mm Watchman FLX device, PASS criteria attempted successfully. Loop 20 : Successful "TUG" test performed. PASS reassessed. Optimal compression obtained - shoulder to shoulder measuremen t is: 20.75 mm. Loop 34: Device released. Patent interatrial septum with small residual left to right shunt (s/p transseptal puncture). Successfully occluded left atrial appendage with Watchman device w ell positioned without thrombus. No residual flow around device detected. No pericardial effusion pos t-implant. Normal pericardium. No effusion. Conclusion Normal LV size and wall thickness. Overall systolic function appears low normal. LVEF is 50%. RV is normal size and function. LA appears moderately dilated. Windsock shaped appendage without thrombus detected. Left upper pulmo nary vein identified. Intact interatrial septum. Width / length averages are: 0degr - 17 x 18 mm; 45 degr - 15 x 18 mm; 90degr - 17 x 23 mm; 135degr 18 x 20 mm. Loop 15: Septal tenting visualized with RF atrial septal puncture performed. Loop 16: Wire in LA. Pigtail advanced to tip of appendage. L A pressure is measured at: 12 mmHG. Loop 17: Appendagram performed. Loop 19: Flex ball deployed. 27 mm Watchman FLX device, PASS criteria attempted successfully. Loop 20 : Successful "TUG" test perf ormed. PASS reassessed. Optimal compression obtained - shoulder to shoulder measurement is: 20.75 mm. Loop 34: Device released. Patent interatrial septum with small residual left to right shunt (s/p t ransseptal puncture). Successfully occluded left atrial appendage with Watchman device well position ed without thrombus. No residual flow around device detected. No pericardial effusion post-implant. Normal pericardium. No effusion.
[2024-08-03] MEDS: ALPRAZolam 0.25mg tablet PO PRN (03:37)
[2024-08-03 06:00] VITALS: BP 134/69; PULSE 63; RESP 14; TEMP 96.4; O2SAT 100
--- NOTE | 2024-08-03 07:16 | RADIOLOGY REPORT ---
EXAM: XR Chest, 1 View CLINICAL INDICATION: s/p Watchman TECHNIQUE: Frontal view of the chest. COMPARISON: CHEST,SINGLE VIEW on DOS: 09/26/21, CHEST,SINGLE VIEW on DOS: 10/05/19, CHEST,SINGLE VIEW on DOS: 09/27/19, CHEST,SINGLE VIEW on DOS: 09/04/19 FINDINGS: LUNGS AND PLEURAL SPACES: Unremarkable. No consolidation. No pneumothorax. HEART: Cardiomegaly without overt failure. MEDIASTINUM: Unremarkable. Normal mediastinal contour. BONES/JOINTS: Unremarkable. No acute fracture. TUBES, LINES AND DEVICES: Left-sided cardiac pacemaker. OTHER FINDINGS: . . IMPRESSION: Cardiomegaly without overt failure.
[2024-08-03 07:21] LABS: BASOPHILS % (AUTO) 0.2 % (0-1); EOSINOPHILS % (AUTO) 0 % (0-6); HEMATOCRIT 35.8 % (42.0-52.0); HEMOGLOBIN 11.8 g/dl (14.0-17.9); INR 1.4 INR; LYMPHOCYTES # (AUTO) 0.5 X10'3 (1.1-4.8); LYMPHOCYTES % (AUTO) 6.4 % (21-51); MEAN CORPUSCULAR HEMOGLOBIN 30.2 PG (27.0-31.0); MEAN CORPUSCULAR HGB CONC 32.9 g/dL (33.0-36.5); MEAN CORPUSCULAR VOLUME 91.6 FL (78-98); MEAN PLATELET VOLUME 6.7 FL (7.4-10.4); MONOCYTES # (AUTO) 0.5 X10'3 (0-0.9); MONOCYTES % (AUTO) 5.8 % (2-12); NEUTROPHILS # (AUTO) 7.4 X10'3 (1.8-7.7); NEUTROPHILS % (AUTO) 87.6 % (42-75); PLATELET COUNT 190 X10'3 (140-440); RED BLOOD COUNT 3.91 X10'6 (4.70-6.10); RED CELL DISTRIBUTION WIDTH 15.9 % (11.5-14.5); WHITE BLOOD COUNT 8.5 X10'3 (4.5-11.0)
--- NOTE | 2024-08-03 07:22 | ELECTROCARDIOGRAPH REPORT ---
[facility] Test Date: 2024-08-03 Test Time: 07:18:39 Pat Name: DUSTY MONDRAGON Department: [facility] 3S Room: [place] [address] A Gender: M Nurse Charge Rn: RAÚL : 1940 Requested By: AB CLINE Order Number: [id number] Reading MD: Dr. YESSENIA Jesus Measurements Intervals [place] Rate: 72 P: 0 IN: 0 QRS: -80 QRSD: 160 T: 114 QT: 468 QTc: 513 Interpretive Statements A sensed, V-paced Electronically Signed On 08-03-2024 11:05:[address] YESSENIA Jesus Please click the below link to view image of tracing.
[2024-08-03 07:40] LABS: ALANINE AMINOTRANSFERASE 43 U/L (12-78); ALBUMIN 3.1 G/DL (3.4-5.0); ALBUMIN/GLOBULIN RATIO 0.9 (1.1-1.5); ALKALINE PHOSPHATASE 96 IU/L (46-116); ANION GAP 9 (8-16); ASPARTATE AMINO TRANSFERASE 48 U/L (10-37); BILIRUBIN,TOTAL 0.5 MG/DL (0.1-1.0); BLOOD UREA NITROGEN 34 MG/DL (7-18); BUN/CREATININE RATIO 22.1 (10.0-20.0); CALCIUM 8.4 MG/DL (8.5-10.1); CHLORIDE 99 MMOL/L (99-107); CREATININE 1.54 MG/DL (0.60-1.10); GLUCOSE 288 MG/DL (70-104); MAGNESIUM 1.8 MG/DL (1.5-2.4); POTASSIUM 4.8 MMOL/L (3.5-5.1); PRO BRAIN NATRIURETIC PEPTIDE 3141 PG/ML (0-450); SODIUM 132 MMOL/L (135-145); TOTAL CARBON DIOXIDE 24.5 MMOL/L (24-32); TOTAL PROTEIN 6.6 G/DL (6.4-8.2); eCRCL 39 ML/MIN; eGFR 44 ML/MIN
[2024-08-03] MEDS ORDERED: MECOBALAMIN PO SCH (08:00)
--- NOTE | 2024-08-03 08:15 | DISCHARGE SUMMARY ---
Discharge Summary Providers to CC CC: NATALIE CLINE MD ~ Discharge Summary Admission Diagnosis: Atrial Fibrillation with high bleeding risk Hospital Course DATE OF ADMISSION: 08/02/2024 DATE OF DISCHARGE: 08/03/2024 Discharge Diagnosis\Comment: Status post left atrial appendage occlusion Operations\Procedures: 1. Transseptal Puncture via DEO guidance 2. Left Atrial Appendogram 3. Left Atrial Appendage closure with 27mm Watchman FLX Pro Pro Device 4. Ultrasound guided access, right Femoral Vein Consultants: None Complications: None Condition on DC: Stable Continued Medications: Cholecalciferol (Vitamin D3) (Vitamin D3) 125 Mcg (5000 Unit) Tablet 3 TAB PO QPM for 30 Days, #30 TAB 0 Refills Insulin Aspart (Novolog) 100 Unit/Ml Cartridge 3-15 UNIT SQ TIDWM PRN for ELEVATED BG, UNIT Insulin Glargine,Hum.rec.anlog* (Lantus*) 100 Unit/1 Ml Vial 30 UNITS SQ QPM Losartan Potassium (Losartan Potassium) 50 Mg Tablet 1 TAB PO QPM for 30 Days, #30 TAB 0 Refills Mecobalamin (B12 Active) 1,000 Mcg Tab.chew 1 TAB PO DAILY, TAB 0 Refills Metoprolol Succinate (Metoprolol Succinate) 50 Mg Tab.sr.24h 1 TAB PO HS Nitroglycerin SL* (Nitrostat SL*) 0.4 Mg Tablet 1 TAB SL PRNCP PRN for pain Rosuvastatin Calcium (Rosuvastatin Calcium) 40 Mg Tablet 1 TAB PO HS [Severe Allergy/Sinus] () PRN for allergies Spironolactone (Aldactone) 25 Mg Tablet 1 TAB PO QPM, TAB Ubidecarenone (Co Q-10) 200 Mg Capsule 1 CAP PO DAILY, CAP 0 Refills Vit A/Vit C/Vit E/Zinc/Copper (Preservision Tablet) 2,148-113 Tablet 1 TAB PO Q12H for 30 Days, #60 TAB 0 Refills Warfarin Sodium (Warfarin Sodium) 2.5 Mg Tablet 2 TAB PO HS Discharge Summary: 83yo man with Afib and high bleeding risk admitted after elective Watchman procedure. Underwent placement of 27mm Watchman Flx Pro without issues. --Resume Warfarin x 45days with repeat imaging at that time. If sealed without evidence of device related thrombosis, can stop OAC and start ASA 81mg QD indefinitely, plavix 75mg QD x 6 months. *Problems/Diagnosis: (1) Atrial fibrillation Total Time Spent on D/C: Up to 30 Minutes Counseling Services Smoking & Tobacco Cessation: N/A AB CLINE MD August 03, 2024 08:15
--- NOTE | 2024-08-04 07:40 | CARDIOLOGY REPORT ---
APPROVED REPORT EXAM: Limited 2D, Doppler, and color-flow Echocardiogram. Patient Location: [facility] Blood Pressure: 134/69 mmHg Heart Rate: 62 bpm Indications ONE DAY FOLLOW UP 27 mm WATCHMAN FLX ALPHONSO CLOSURE DEVICE FIRE COORDINATOR: Wendi Haines MD Previous ECHO: 08/02/24, [facility], EF: 50; modLAE LEFT VENTRICLE Normal LV size and wall thickness. Overall systolic function is normal. LVEF is 55%. RIGHT VENTRICLE RV is normal size and function. ATRIA LA appears moderately dilated. Intact interatrial septum with a tiny L to R shunt s/p transseptal pun cture by color and spectral Doppler. GREAT VESSELS The IVC is normal in size and collapses >50% with inspiration. PERICARDIUM Normal pericardium. No effusion. Other Information Study Quality: Adequate Conclusion Normal LV size and wall thickness. Overall systolic function is normal. LVEF is 55%. RV is normal size and function. LA appears moderately dilated. Intact interatrial septum with a tiny L to R shunt s/p transseptal pu ncture by color and spectral Doppler. Normal pericardium. No effusion.
== END 2024-08-03 10:46 | disposition home or self-care (01) | DRG 274 ==
LOC: PAS IN 08:37 → PCU 3S 14:00
PROVIDERS: ADMIT Student in an Organized Health Care Education/Training Program; ATTEND Student in an Organized Health Care Education/Training Program
PROC: B24BZZ4 Ultrasonography of Heart with Aorta, Transesophageal (ICD-10-PCS; 2024-08-02)
PROC: 02L73DK Occlusion of Left Atrial Appendage with Intraluminal Device, Percutaneous Approach (ICD-10-PCS; principal; 2024-08-02 10:59)
DX: I48.91 Unspecified atrial fibrillation (principal); Z00.6 Encounter for examination for normal comparison and control in clinical research program; Z79.01 Long term (current) use of anticoagulants
CPT/HCPCS: 33340; 36415; 71045; 71046; 76937; 80053; 81003; 82948; 83036; 83735; 83880; 85025; 85347; 85610; 85730; 86885; 86900; 86901; 86920; 87081; 93005; 93308; 93312; 93325; A4618; A6258; A6449; C1760; C1889; C1894; G0378; J0690; J1100; J1644; J1815; J2003; J2405; J2704; J3010; J3370; J3372; J3490; J7030; J7120; P9016; Q9967

== ENCOUNTER 2024-09-03 11:57 | Outpatient (CLI) | payer MEDICARE ==
[~2024-09-03 11:57] MED LIST changes: -ondansetron 4mg rapidly disintigrating tab PO PRN
[2024-09-03 12:54] LABS: C-REACTIVE PROTEIN 0.49 MG/DL (0.0-0.5)
[2024-09-03 12:56] LABS: URIC ACID 4.4 MG/DL (3.5-7.2)
--- NOTE | 2024-09-03 13:08 | RADIOLOGY REPORT ---
EXAM: DI HAND,LIMITED (AP/LAT) CLINICAL INDICATION: SWELLING OF LEFT HAND TECHNIQUE: DI HAND,LIMITED (AP/LAT) Comparison: None FINDINGS/IMPRESSION: There is no evidence of acute fracture or dislocation. 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 There is a surgical screw involving the 2nd distal digit. The alignment is anatomical.
== END 2024-09-03 23:59 | disposition home or self-care (01) ==
LOC: RAD 11:57
PROVIDERS: ATTEND Family Medicine
DX: M18.12 Unilateral primary osteoarthritis of first carpometacarpal joint, left hand (principal); M79.89 Other specified soft tissue disorders
CPT/HCPCS: 36415; 73120; 84550; 85651; 86140

== ENCOUNTER 2024-09-21 11:51 | Day surgery (SDC) | payer MEDICARE ==
[2024-09-21] VITALS (11 sets, daily range): BP systolic 128–164; BP diastolic 70–90; PULSE 55–66; RESP 16–20; TEMP 97.8; O2SAT 98–100
[~2024-09-21] VITALS: Ht 177.8 cm; Wt 88.0 kg
[2024-09-21] MEDS ORDERED: dextrose 50%-water 50ml dispensing syringe IV PRN (12:10)
[2024-09-21] MEDS ORDERED: MELO-100 PO (12:24)
[2024-09-21 12:41] LABS: MEAN PLATELET VOLUME 6.2 FL (7.4-10.4); RED CELL DISTRIBUTION WIDTH 15.5 % (11.5-14.5)
[2024-09-21 12:49] LABS: CREATININE 1.28 MG/DL (0.60-1.10); TOTAL CARBON DIOXIDE 26.1 MMOL/L (24-32); eCRCL 47 ML/MIN; eGFR 54 ML/MIN
[2024-09-21 12:50] LABS: INR 3.0 INR
[2024-09-21] MEDS: MIDAZolam 1mg/ml 10ml vial IV ONE (13:28)
[2024-09-21] MEDS: fentaNYL/PF 50MCG/1 ML 2ML syringe IV ONE (13:28)
--- NOTE | 2024-09-21 17:49 | CARDIOLOGY REPORT ---
APPROVED REPORT EXAM: Focused, limited transesophageal echocardiogram with color flow Doppler. Patient Location: 243B Blood Pressure: 154/74 mmHg Heart Rate: 58 bpm Indications POST WATCHMAN FLX ALPHONSO CLOSURE DEVICE IMPLANTATION FOLLOW UP EVALUATE DEVICE FOR THROMBUS, POSITION, AND SEAL 27 mm WATCHMAN FLX ALPHONSO CLOSURE DEVICE DEO PROBE PASSED BY Wendi Haines MD SHIPPING ASSOCIATE: Wendi Haines MD Previous ECHO: 08/02/24, [facility], EF: 50; small L to R shunt s/p transseptal puncture by color and spec tral Doppler, no residual flow around device. LEFT VENTRICLE Normal LV size and wall thickness. Overall systolic function is normal. LVEF is 55%. RIGHT VENTRICLE RV is normal size and function. ATRIA LA appears moderately dilated. Intact interatrial septum with no L to R shunt s/p transseptal punctur e. Left upper pulmonary vein identified. Successfully occluded left atrial appendage with well visual ized Watchman device well positioned without thrombus. No residual flow detected around device in all views. PERICARDIUM Normal pericardium. No effusion. CONCLUSION Normal LV size and wall thickness. Overall systolic function is normal. LVEF is 55%. RV is normal siz e and function. LA appears moderately dilated. Intact interatrial septum with no L to R shunt s/p tra nsseptal puncture. Left upper pulmonary vein identified. Successfully occluded left atrial appendage with well visualized Watchman device well positioned without thrombus. No residual flow detected arou nd device in all views. Normal pericardium. No effusion. Conclusion Normal LV size and wall thickness. Overall systolic function is normal. LVEF is 55%. RV is normal size and function. LA appears moderately dilated. Intact interatrial septum with no L to R shunt s/p transseptal punctu re. Left upper pulmonary vein identified. Successfully occluded left atrial appendage with well vis ualized Watchman device well positioned without thrombus. No residual flow detected around device in all views. Normal pericardium. No effusion.
== END 2024-09-21 14:30 | disposition home or self-care (01) ==
LOC: SSTAY O 11:51
PROVIDERS: ATTEND Student in an Organized Health Care Education/Training Program
DX: I48.91 Unspecified atrial fibrillation (principal); I50.9 Heart failure, unspecified; I11.0 Hypertensive heart disease with heart failure; I25.10 Atherosclerotic heart disease of native coronary artery without angina pectoris; Z79.899 Other long term (current) drug therapy
CPT/HCPCS: 36415; 80048; 82948; 85025; 85610; 93312; 93325; 94760; J2250; J3010; J7030; 93308

== ENCOUNTER 2024-11-24 08:03 | Emergency (ER) | payer MEDICARE ==
[~2024-11-24] VITALS: Ht 177.8 cm; Wt 84.2 kg
[~2024-11-24 08:03] MED LIST changes: +MELO-100 PO; -NITR0.4T51 SL; -UBID200C18 PO; -[UNRECOGNIZED DRUG - REMARK]
--- NOTE | 2024-11-24 08:54 | RADIOLOGY REPORT ---
CLINICAL HISTORY: fall, blood thinners TECHNIQUE: Helical scanning was performed of the head from the skull base to the vertex. Multiplanar reconstructions were performed. This exam was performed according to our departmental dose optimization program. Up-to-date CT equipment and radiation dose reduction techniques are utilized as appropriate. CTDI 64 DLP 1131 COMPARISON: None FINDINGS: There is no evidence for acute intracranial hemorrhage, acute ischemic changes, mass, mass effect, or extra-axial fluid collection. There is no hydrocephalus or midline shift. There is no effacement of the cerebral sulci and basal subarachnoid cisterns. The horton-white matter differentiation is well maintained. There is mild brain volume loss and chronic small vessel ischemic change. There has been bilateral cataract extraction The imaged paranasal sinuses are clear. IMPRESSION: NO ACUTE INTRACRANIAL ABNORMALITY SEEN.
--- NOTE | 2024-11-24 09:04 | RADIOLOGY REPORT ---
CLINICAL HISTORY: fall/left rib pain TECHNIQUE: Single view of the chest was obtained. COMPARISON: DI CHEST,SINGLE VIEW on DOS: 08/03/24, DI CHEST,TWO VIEWS on DOS: 07/27/24, CHEST,SINGLE VIEW on DOS: 09/26/21, CHEST,SINGLE VIEW on DOS: 10/05/19, CHEST,SINGLE VIEW on DOS: 09/27/19 FINDINGS: There are midline sternotomy wires and left chest wall pacing device. There are bilateral partially imaged shoulder arthroplasties. The heart size and pulmonary vasculature are normal. The lungs are clear. IMPRESSION: NO ACUTE CARDIOPULMONARY PROCESS.
--- NOTE | 2024-11-24 10:16 | Physician Documentation ---
History of Present Illness ~ Chief Complaint: Mechanical Fall Stated Complaint: ARM LAC Time Seen by MD: 08:19 Primary Medical Doctor: ARIADNA HPI 84 year old male fell several days ago and has been bleeding from a L arm skin tear since that time. He is on a DOAC. He has been ambulatory and did not strike his head or lose consciousness. He thinks he may have struck his chest on something. Tetanus within 5 Years?: Yes Medication Reconciliation Allergies: Coded Allergies: No Known Allergies (Unverified , 09/27/19) Scheduled Cholecalciferol (Vitamin D3) (Vitamin D3), 3 TAB PO QPM, (Reported) Insulin Glargine,Hum.rec.anlog* (Lantus*), 30 UNITS SQ QPM, (Reported) Losartan Potassium (Losartan Potassium), 1 TAB PO QPM, (Reported) Mecobalamin (B12 Active), 1 TAB PO DAILY, (Reported) Metoprolol Succinate (Metoprolol Succinate), 1 TAB PO HS, (Reported) Rosuvastatin Calcium (Rosuvastatin Calcium), 1 TAB PO HS, (Reported) Spironolactone (Aldactone), 1 TAB PO QPM, (Reported) Vit A/Vit C/Vit E/Zinc/Copper (Preservision Tablet), 1 TAB PO Q12H, (Reported) Warfarin Sodium (Warfarin Sodium), 2 TAB PO HS, (Reported) Scheduled PRN Insulin Aspart (Novolog), 3-15 UNIT SQ TIDWM PRN for ELEVATED BG, (Reported) Discontinued Medications Meloxicam* (Meloxicam*), 1 TAB PO DAILY, (Reported) Discontinued Reason: patient no longer taking Past Medical History Past Medical History: *CARDIOVASCULAR*, Congestive Heart Failure, Anemia, Chronic Kidney Disease Past Surgical History: heart valve surgery, orthopedic surgeries Drug Use: none Lives In: Home Occupation: retired Review of Systems All Other Systems at this time: Reviewed and Negative Physical Exam Vital Signs: Temperature: 97.8, Source: Oral, Heart Rate: 61, Respiratory Rate: 15, BP: 135/71, Pulse Oximetry: 100, Weight: 84.200 Physical Exam HEENT: PERRL, moist oral mucosa, EOMI Pulmonary: No respiratory distress CTAB MSK: no deformity, long bones stable Skin: w/d/i, no rash; L elbow with 6cm [id number] skin tear Neuro: alert, nonfocal Psych: normal affect Progress Results/Orders Results/Orders Orders - BLANE RIVERA MD Ct Head (11/24/24 08:19) Chest,Single View (11/24/24 08:23) General Nursing Order (11/24/24 ) General Nursing Order (11/24/24 08:51) Completed Orders - BLANE RIVERA MD Ct Head (11/24/24 08:19) Chest,Single View (11/24/24 08:23) Vital Signs 11/24/24 08:08 Temp 97.8 Pulse 61 Resp 15 B/P (MAP) 135/71 Pulse Ox 100 Medical Decision Making Findings 84 year old male with benign exam and vitals. CT head interpreted by me demonstrated no mass/shift/bleed. CXR interpreted by me demonstrated normal c ontours, no PTX, no PNA, no acute. Dressed skin tear with pressure dressing, will road test and discharge with return precautions. Differential Dx:Considerations: Include: Closed head injury, Pneumothorax, Abrasion(s), Contusion(s), Hematoma(s), Laceration(s) Departure Disposition: 01 HOME / SELF CARE / HOMELESS Impression: Primary Impression: Skin tear Condition: Stable Discharge Instructions: Skin Tear Education Educated: Patient Educated regarding: diagnosis, treatment, prognosis, need for follow up Signature Scribe Signature: . Attestation: . BLANE RIVERA MD Nov 24, 2024 10:16
[2024-11-24 11:50] VITALS: BP 141/79; PULSE 71; RESP 14; TEMP 98; O2SAT 97
[2024-11-27] MEDS ORDERED: OXYC-145 PO (12:20)
[2024-11-27] MEDS ORDERED: HYDR-3965 PO (16:34)
== END 2024-11-24 10:55 | disposition home or self-care (01) ==
LOC: ER 08:03
DX: S41.112A Laceration without foreign body of left upper arm, initial encounter (principal); I50.9 Heart failure, unspecified; D63.1 Anemia in chronic kidney disease; R51.9 Headache, unspecified; N18.9 Chronic kidney disease, unspecified; Z79.899 Other long term (current) drug therapy; Z79.4 Long term (current) use of insulin; Z98.890 Other specified postprocedural states; Z79.01 Long term (current) use of anticoagulants; W18.39XA Other fall on same level, initial encounter; Y93.89 Activity, other specified; Y92.89 Other specified places as the place of occurrence of the external cause; Y99.8 Other external cause status
CPT/HCPCS: 70450; 71045; 99284; A6223; A6253; A6446; A6449

== ENCOUNTER 2024-11-26 15:13 | Emergency (ER) | payer MEDICARE ==
[~2024-11-26] VITALS: Ht 177.8 cm; Wt 86.4 kg
[~2024-11-26 15:13] MED LIST changes: -MELO-100 PO
--- NOTE | 2024-11-26 16:50 | RADIOLOGY REPORT ---
EXAM: DI ELBOW, COMPLETE (3VW MIN) INDICATION: ELBOW PAIN TECHNIQUE: 3 views of the left elbow COMPARISON: None FINDINGS/IMPRESSION: No radiographic evidence of an acute osseous abnormality. There is no acute fracture, osseous malalignment, or aggressive focal osseous lesion. Degenerative change of the elbow joint with severe joint space loss of the radial capitellar articulation. Spurring of the medial epicondyle. Possible anterior elbow joint effusion possible posterior elbow joint effusion. No discrete fracture plane.
[2024-11-26] MEDS ORDERED: morphine 4 MG/ML inj SYRINge IV ONE (18:15)
[2024-11-26] MEDS: morphine 4 MG/ML inj SYRINge IM ONE (18:38)
[2024-11-26 18:47] LABS: MEAN PLATELET VOLUME 6.4 FL (7.4-10.4); RED CELL DISTRIBUTION WIDTH 14.8 % (11.5-14.5)
[2024-11-26 19:09] LABS: CREATININE 1.17 MG/DL (0.60-1.10); TOTAL CARBON DIOXIDE 23.6 MMOL/L (24-32); eCRCL 50 ML/MIN; eGFR 60 ML/MIN
[2024-11-26] MEDS: ceFAZolin 1gm IM kit IM ONE (19:17)
[2024-11-26] MEDS ORDERED: CEPH-585 PO (20:12)
--- NOTE | 2024-11-26 20:13 | Physician Documentation ---
History of Present Illness ~ Chief Complaint: Elbow pain Stated Complaint: ELBOW PAIN Time Seen by MD: 17:11 Primary Medical Doctor: ARIADNA Mode of Arrival: POV HPI 74-year-old male right-hand dominant have referred to the emergency department for suspected fracture and injury to the left elbow. Had a mechanical fall Tuesday and I loss of consciousness suffering a left elbow injury with skin tear. He is on blood thinners. Seen by personal friend physician and referred to the emergency department for suspected fracture. He has had decreased range of motion, swelling and discomfort to the left elbow. Seen in triage and had plain film imaging ordered. Tetanus within 5 years: Yes Medication Reconciliation Allergies: Coded Allergies: No Known Allergies (Unverified , 09/27/19) Scheduled Cephalexin*Monohydrate* (Keflex*), 1 CAP PO TID Cholecalciferol (Vitamin D3) (Vitamin D3), 3 TAB PO QPM, (Reported) Insulin Glargine,Hum.rec.anlog* (Lantus*), 30 UNITS SQ QPM, (Reported) Losartan Potassium (Losartan Potassium), 1 TAB PO QPM, (Reported) Mecobalamin (B12 Active), 1 TAB PO DAILY, (Reported) Metoprolol Succinate (Metoprolol Succinate), 1 TAB PO HS, (Reported) Rosuvastatin Calcium (Rosuvastatin Calcium), 1 TAB PO HS, (Reported) Spironolactone (Aldactone), 1 TAB PO QPM, (Reported) Vit A/Vit C/Vit E/Zinc/Copper (Preservision Tablet), 1 TAB PO Q12H, (Reported) Warfarin Sodium (Warfarin Sodium), 2 TAB PO HS, (Reported) Scheduled PRN Insulin Aspart (Novolog), 3-15 UNIT SQ TIDWM PRN for ELEVATED BG, (Reported) Discontinued Medications Meloxicam* (Meloxicam*), 1 TAB PO DAILY, (Reported) Discontinued Reason: patient no longer taking Past Medical History Past Medical History: *CARDIOVASCULAR*, Congestive Heart Failure, Anemia, Chronic Kidney Disease Past Surgical History: heart valve surgery, orthopedic surgeries Drug Use: none Lives In: Home Occupation: retired Review of Systems All Other Systems at this time: Reviewed and Negative Musculoskeletal: Reports: swelling, joint pain, joint swelling Hematologic/Lymphatic: Reports: easy bleeding, easy bruising Physical Exam Vital Signs: Temperature: 97.4, Source: Temporal, Heart Rate: 70, Respiratory Rate: 16, BP: 132/66, Pulse Oximetry: 100, Weight: 86.360 General Appearance: alert, WD/WN, moderate distress EENT: PERRL/EOMI Respiratory: normal breath sounds Cardiovascular: regular rate, rhythm Elbow/Forearm: abrasions, bone tenderness, ecchymosis, limited ROM, pain, soft tissue tenderness, swelling; No: deformity Wrist: normal inspection Hand: normal inspection Digit: normal inspection Digit Strength: normal Distal Function: normal pulse, normal cap. refill, normal motor function Distal Function Excellent distal cap refill, radial, median ulnar nerve grossly intact Skin: other (Large skin tear left forearm over the joint) Neurologic: oriented x4 Psychiatric: normal mood/affect Progress Results/Orders Results/Orders Vital Signs 11/26/24 11/26/24 11/26/24 11/26/24 15:28 17:34 18:38 20:30 Temp 97.4 98.6 Pulse 70 68 Resp 18 16 16 B/P (MAP) 132/66 130/62 Pulse Ox 100 99 Laboratory Tests Test 11/26/24 18:34 White Blood Count 7.3 Red Blood Count 3.92 L Hemoglobin 12.0 L Hematocrit 36.2 L Mean Corpuscular Volume 92.4 Mean Corpuscular Hemoglobin 30.7 Mean Corpuscular Hemoglobin Concent 33.2 Red Cell Distribution Width 14.8 H Platelet Count 212 Mean Platelet Volume 6.4 L Neutrophils (%) (Auto) 72.0 Lymphocytes (%) (Auto) 14.0 L Monocytes (%) (Auto) 12.3 H Eosinophils (%) (Auto) 1.1 Basophils (%) (Auto) 0.6 Neutrophils # (Auto) 5.2 Lymphocytes # (Auto) 1.0 L Monocytes # (Auto) 0.9 Eosinophils # (Auto) 0.1 Basophils # (Auto) 0.0 CBC Comment Sodium Level 132 L Potassium Level 4.8 Chloride Level 100 Carbon Dioxide Level 23.6 L Anion Gap 8 Blood Urea Nitrogen 27 H Creatinine 1.17 H Estimated GFR/1.73 m2 60 BUN/Creatinine Ratio 23.1 H Glucose Level 85 Calcium Level 8.8 Total Bilirubin 0.5 Aspartate Amino Transf (AST/SGOT) 38 H Alanine Aminotransferase (ALT/SGPT) 36 Alkaline Phosphatase 107 Total Protein 7.2 Albumin 3.5 Globulin 3.7 Albumin/Globulin Ratio 0.9 L Chemistry Comments Medical Decision Making Additional Comment 84-year-old male with a left elbow injury; plain film imaging and physical examination suggestive of radial head injury. Due to the deep skin tear patient to receive 1st time dose of antibiotic in the emergency department Ancef and pain management in the form of morphine. X-ray imaging reviewed, x-ray report reviewed by radiologist. Single injection of morphine nearly satiated patient's pain. His physical exam is pertinent for pain with pronation and supination and decreased range of motion. He is grossly neurologically intact. Elected not to go ahead and not obtain CT imaging at this time yet we will refer to orthopedics for definitive management. He is placed in a posterior splint with wound care. Sling applied. Outpatient prescriptions for Percocet and Keflex. (the opiate prescription will be delayed due to issues with CUR ES). Patient's safely discharged in the emergency department grossly neurologically intact with splint clean dry and intact. Departure Disposition: 01 HOME / SELF CARE / HOMELESS Impression: Primary Impression: Fracture of elbow Qualified Codes: S42.402B - Unspecified fracture of lower end of left humerus, initial encounter for open fracture Additional Impression: Radial head fracture Qualified Codes: S52.125A - Nondisplaced fracture of head of left radius, initial encounter for closed fracture Condition: Improved Discharge Instructions: Elbow Injury Additional Instructions: Tonight in the emergency department you received a 1st dose antibiotic along with splint application to your left upper extremity. He has keep your splint clean and dry. You were provided pain management. It is recommended that he make follow up with orthopedic clinic for definitive management. Obtain prescriptions and take as directed. Return to the emergency department as needed thank you for visiting [facility]. Referrals: NO PRIMARY CARE PROVIDER (PCP) Prescriptions Hydrocodone Bit/Acetaminophen 5/325 MG ([place] 5/325 MG) 5 Mg/325 Mg Tablet 1 TAB PO Q6H PRN for pain for 3 Days, #12 TAB Prov: RAQUEL URIBE MOBILE DEVELOPER 11/27/24 Cephalexin*Monohydrate* (Keflex*) 500 Mg Capsule 1 CAP PO TID, #28 CAP Prov: COOPER JACKSON PAC 11/26/24 Education Educated: Patient, Family Educated regarding: diagnosis, treatment Signature Scribe Signature: . Attestation: . COOPER JACKSON PAC Nov 26, 2024 20:13 RAQUEL URIBE [employer]BI[employer] DEVELOPER Nov 27, 2024 16:35
[2024-11-26 20:30] VITALS: BP 130/62; PULSE 68; RESP 16; TEMP 98.6; O2SAT 99
[2024-11-27] MEDS ORDERED: ceFAZolin/D5W- 1GM premix 50 ML IV SCH
[2024-11-27] MEDS ORDERED: OXYC-145 PO (12:20)
[2024-11-27] MEDS ORDERED: HYDR-3965 PO (16:34)
== END 2024-11-26 20:30 | disposition home or self-care (01) ==
LOC: ER 15:13
DX: S52.125A Nondisplaced fracture of head of left radius, initial encounter for closed fracture (principal); D63.1 Anemia in chronic kidney disease; N18.9 Chronic kidney disease, unspecified; I50.9 Heart failure, unspecified; Z79.01 Long term (current) use of anticoagulants; Z79.4 Long term (current) use of insulin; Z79.899 Other long term (current) drug therapy; Z98.890 Other specified postprocedural states; W01.10XA Fall on same level from slipping, tripping and stumbling with subsequent striking against unspecified object, initial encounter; Y93.89 Activity, other specified; Y92.89 Other specified places as the place of occurrence of the external cause; Y99.8 Other external cause status
CPT/HCPCS: 29105; 36415; 73080; 80053; 85025; 96372; 99284; A4565; A6223; A6449; J0690; J2270